=== PATIENT | female | born 1975 | race Caucasian/White ===

== ENCOUNTER 2017-08-23 07:18 | Day surgery (SDC) | payer BC ==
[2017-08-16 15:04] VITALS: BMI 23.6
[~2017-08-23 07:18] MED LIST: DEXAMETHASONE SOD PHOSPHATE 10 MG/ML 1 ML VIAL IV ONE; DEXAMETHASONE SOD PHOSPHATE 4 MG/ML 1 ML VIAL IV ONE; FAMOTIDINE 20 MG/2 ML VIAL IV ONE; HYDROmorphone 0.5 MG/0.5 ML SYRINGE IVP PRN; LACTATED RINGERS 1,000 ML IV SCH; LIDOCAINE 1% 20 ML VIAL (10MG/ML) FOR IV START INTRADERMA PRN; MIDAZOLAM 2 MG/2 ML VIAL IV PRN; ONDANSETRON 4 MG/2 ML VIAL IVP ONE; SCOPOLAMINE 1.5MG/72HR PATCH TRANSDERM ONE; ceFAZolin IN SWFI 2 GM/20 ML SYRINGE IVP ONE
[2017-08-23] MEDS: OXYMETAZOLINE 0.05% NASL SPRAY 1 SPRAY BOTTLE NASAL ONE ×5 (07:45→08:09)
[2017-08-23 08:09] VITALS: RESP 16; TEMP 97.4
[2017-08-23] MEDS ORDERED: PROPOFOL 10 MG/ML 20 ML VIAL IV ONE (09:10)
[2017-08-23] MEDS ORDERED: LIDOCAINE 1% INJ 10MG/ML (20 ML MDV) ONE (09:10)
[2017-08-23] MEDS ORDERED: MIDAZOLAM 2 MG/2 ML VIAL ONE (09:10)
[2017-08-23] MEDS ORDERED: ROCURONIUM BROMIDE 10 MG/ML 10 ML VIAL IV ONE (09:10)
[2017-08-23] MEDS ORDERED: fentaNYL (PF) 50 MCG/ML 2 ML AMP ONE (09:10)
[2017-08-23] MEDS ORDERED: GLYCOPYRROLATE 0.2 MG/ML 2 ML VIAL ONE (09:10)
[2017-08-23] MEDS ORDERED: NEOSTIGMINE 1 MG/ML 10 ML VIAL ONE (09:10)
[2017-08-23] MEDS ORDERED: LIDOCAINE-EPINEPHRINE (PF) 5 ML AMPUL SQ ONE ×2 (09:35)
[2017-08-23] MEDS ORDERED: FLUORESCEIN STRIPS 1 MG STRIP MISCELLANE ONE (09:35)
[2017-08-23] MEDS ORDERED: EPINEPHrine 1 MG/ML (MDV) 30 ML VIAL TOPICAL ONE ×2 (09:35)
[2017-08-23] MEDS ORDERED: SODIUM CHLORIDE 0.9% 50 ML with ceFAZolin 2,000 MG IV ONE ×2 (09:36)
[2017-08-23] MEDS ORDERED: DEXAMETHASONE SOD PHOSPHATE 10 MG/ML 1 ML VIAL IV ONE ×2 (09:54)
[2017-08-23] MEDS ORDERED: LACTATED RINGERS 1,000 ML IV ONE (10:05)
--- NOTE | 2017-08-23 10:25 | P.OP ---
Date of Procedure: 08/23/17 Preoperative Diagnosis: Chronic sinusitis with nasofrontal polyposis Postoperative Diagnosis: same Procedure(s) Performed: Bilateral functional endoscopic sinus surgery with polypectomy Anesthesia: MICKEYA Surgeon: Mello Coleman Estimated Blood Loss (ml): 10 Pathology: other (sinonasal) Condition: stable Disposition: PACU Indications for Procedure: This patient has chronic sinus issues with facial pain drainage congestion and recurring infections. Patient was found have sinonasal polyposis in the ethmoid and frontal sinus region. She has failed medical therapy and sinus surgery was indicated. All risks, benefits, and alternative therapies were discussed. Consent was obtained and all questions were answered. Operative Findings: Patient had polyposis of the nasal frontal duct in the ethmoid and frontal sinus region with obstruction Description of Procedure: This patient was taken to the operative room and placed in the supine position. A sphenopalatine nerve block was performed along with injection of the lateral nasal wall with lidocaine 1% with epinephrine 1 100,000. 10 minutes were allowed wait for full vasoconstrictive effects to take place. With use of a 0 endoscope we entered the nose bilaterally and we discovered polyposis in the ethmoid sinuses extending up into the nasal frontal duct. With use of a microdebrider we removed polyposis from the ethmoid and did a total ethmoidectomy removing all disease of the ethmoids beyond the basal lamella into the posterior ethmoid air cells. The ethmoid polyps were removed and a total ethmoidectomy was performed. This was done bilaterally. We then identified the nasal frontal duct which was occluded with polyposis. We inserted an entellus balloon into the frontal sinuses with illumination and ballooned open the frontal sinuses bilaterally. This allowed us to access up into the frontal sinus bilaterally. We explored the frontal sinuses bilaterally and we remove diseased tissue and polyps from the frontal sinuses and nasal frontal duct. Again this was done bilaterally. The ethmoids were opened and polyps were removed the frontal sinuses were opened polyps were removed we explored the frontal sinus. The patient tolerated this well and follow-up will be in the office in 1 week. Xerogel was placed bilaterally.
[2017-08-23 11:26] VITALS: BP 111/77; PULSE 66
== END 2017-08-23 11:47 | disposition home or self-care (01) ==
LOC: OR 07:18
PROVIDERS: ATTEND Otolaryngology
DX: J32.9 Chronic sinusitis, unspecified (principal); J33.9 Nasal polyp, unspecified; H81.09 Meniere's disease, unspecified ear; G35 Multiple sclerosis; E07.9 Disorder of thyroid, unspecified; E28.2 Polycystic ovarian syndrome; Z79.84 Long term (current) use of oral hypoglycemic drugs; Z79.3 Long term (current) use of hormonal contraceptives; Z79.899 Other long term (current) drug therapy; Z79.51 Long term (current) use of inhaled steroids; Z79.2 Long term (current) use of antibiotics; Z91.09 Other allergy status, other than to drugs and biological substances
CPT/HCPCS: 88304; 31253; C1726; J0171; J2250; J1100; J2710; J2405; J2001; J3010; J0690; J2704

== ENCOUNTER → 2018-03-20 | Outpatient (CLI) | payer BC ==
[2018-03-20 09:35] LABS: HCT 41.3 % (34.0-46.0); HGB 13.3 gm/dL (11.4-16.0); MCH 27.7 pg (25.0-35.0); MCHC 32.3 g/dL (31.0-37.0); MCV 85.8 fL (80.0-100.0); Mean Platelet Volume 6.4; Platelet Count 322 k/uL (150-450); RBC 4.81 m/uL (3.80-5.40); RDW 13.3 % (11.5-15.5); WBC 7.6 k/uL (3.8-10.6)
[2018-03-20 11:40] LABS: ALT 21 U/L (9-52); AST 19 U/L (14-36); Albumin 4.3 g/dL (3.5-5.0); Alkaline Phosphatase 86 U/L (38-126); Anion Gap 7 mmol/L; Blood Urea Nitrogen 13 mg/dL (7-17); Calcium 9.8 mg/dL (8.4-10.2); Carbon Dioxide 26 mmol/L (22-30); Chloride 106 mmol/L (98-107); Glucose 92 mg/dL (74-99); Potassium 4.3 mmol/L (3.5-5.1); Sodium 139 mmol/L (137-145); Total Bilirubin 0.2 mg/dL (0.2-1.3); Total Protein 7.3 g/dL (6.3-8.2)
[2018-03-20 11:53] LABS: T4, Free (Free Thyroxine) 0.58 ng/dL (0.78-2.19)
[2018-03-20 16:37] LABS: ACTH 6.26 pg/mL (0.00-45.99)
== END | disposition home or self-care (01) ==
LOC: LABWHC1 09:13
PROVIDERS: ATTEND Internal Medicine Endocrinology, Diabetes & Metabolism
DX: R53.83 Other fatigue (principal)
CPT/HCPCS: 36415; 80053; 82024; 82533; 82607; 84146; 84439; 84443; 84481; 85027

== ENCOUNTER → 2018-05-22 | Outpatient (CLI) | payer BC ==
[2018-05-23 02:28] LABS: T4, Free (Free Thyroxine) 1.2 ng/dL (0.80-1.80)
== END | disposition home or self-care (01) ==
LOC: LABWHC1 15:51
PROVIDERS: ATTEND Internal Medicine Endocrinology, Diabetes & Metabolism
DX: R53.83 Other fatigue (principal)
CPT/HCPCS: 36415; 84439; 84443

== ENCOUNTER → 2018-09-18 | Outpatient (CLI) | payer BC | LOC: LABWHC1 14:54 | PROVIDERS: ATTEND Internal Medicine Endocrinology, Diabetes & Metabolism | DX: E03.8 Other specified hypothyroidism (principal) | CPT/HCPCS: 36415; 84443 ==

== ENCOUNTER → 2018-12-27 | Outpatient (CLI) | payer BC | END | disposition home or self-care (01) | LOC: LABWHC1 11:12 | PROVIDERS: ATTEND Internal Medicine Endocrinology, Diabetes & Metabolism | DX: E03.8 Other specified hypothyroidism (principal) | CPT/HCPCS: 36415; 84443 ==

== ENCOUNTER → 2019-05-30 | Outpatient (CLI) | payer BC | LOC: LABWHC1 14:57 | PROVIDERS: ATTEND Internal Medicine Endocrinology, Diabetes & Metabolism | DX: E03.8 Other specified hypothyroidism (principal) | CPT/HCPCS: 36415; 84443 ==